=== PATIENT | female | born 1980 | race Caucasian/White ===

== ENCOUNTER 2017-10-09 05:16 | Inpatient (IN) | payer BC ==
[2017-10-09] MEDS ORDERED: Ondansetron HCl/PF 4 MG/2 ML Vial IVP PRN ×7 (05:24→16:19)
[2017-10-09] MEDS ORDERED: Promethazine HCl 25 MG/ML VIAL IM PRN ×3 (05:24→07:17)
[2017-10-09] MEDS ORDERED: Bicitra 30 ML UDCUP PO SCH (05:24)
[2017-10-09] MEDS ORDERED: CEFAZOLIN/Water 2 GM/20 ML SYRINGE SLOW IVP SCH (05:24)
[2017-10-09] MEDS ORDERED: Lactated Ringer's 1,000 ML IV SCH (05:24)
[2017-10-09 05:41] VITALS: BMI 34.4
[2017-10-09 06:03] LABS: Hemoglobin 11.3 g/dL (12.0-16.0); Mean Corpuscular HGB CONC 33.6 g/dL (32.0-36.0); Mean Corpuscular Hemoglobin 30.2 pg (27.0-31.0); Mean Corpuscular Volume 89.7 fl (81.0-99.0); Mean Platelet Volume 6.8 fL (7.4-10.4); Platelet Count 246 thou/uL (130-400); RBC Distribution Width 14.8 % (11.5-14.5); Red Blood Cell (RBC) Count 3.73 mill/uL (4.20-5.40); White Blood Cell (WBC) Count 7.8 thou/uL (4.8-10.8)
[2017-10-09 06:40] LABS: Hep B Surf Ag Non-Reactive S/CO (NonReactive)
[2017-10-09] MEDS ORDERED: Promethazine HCl 25 MG SUPP PR PRN ×3 (06:45→16:20)
[2017-10-09] MEDS ORDERED: Meperidine HCl/PF 25 MG/ML VIAL SLOW IVP PRN ×2 (06:45→07:17)
[2017-10-09] MEDS ORDERED: Ketorolac Tromethamine 30 MG/ML VIAL IVP PRN ×3 (06:45→15:30)
[2017-10-09] MEDS ORDERED: diphenhydrAMINE 50 MG/ML VIAL IVP PRN ×3 (06:45→16:22)
[2017-10-09] MEDS ORDERED: Naloxone HCl 0.4 mg/ml Vial IV PRN ×3 (06:45→16:18)
[2017-10-09] MEDS ORDERED: Ketorolac Tromethamine 30 MG/ML VIAL IVP SCH ×2 (06:45→07:30)
[2017-10-09] MEDS ORDERED: Eucerin (Mineral Oil/Petrolatum,White) 30 gm Jar TOP PRN ×3 (06:45→16:23)
[2017-10-09] MEDS ORDERED: Naloxone HCl 0.4 mg/ml Vial IVP PRN ×6 (06:45→16:24)
[2017-10-09] MEDS ORDERED: Communication Order-Pharmacy FS SCH ×2 (06:45→07:30)
[2017-10-09] MEDS ORDERED: HYDROmorphone 2 MG/ML VIAL SLOW IVP PRN ×2 (06:45→07:17)
[2017-10-09] MEDS ORDERED: Morphine PF 1 MG/ML SYR ONE (06:54)
[2017-10-09] MEDS ORDERED: Bupivacaine 0.75% W/DEXTROSE 8.25% 2 ML AMP ONE (06:55)
[2017-10-09] MEDS ORDERED: Dexamethasone 4 mg/ml Vial ONE (06:55)
[2017-10-09] MEDS ORDERED: Oxytocin 10 UNITS/ML VIAL ONE (06:55)
[2017-10-09] MEDS ORDERED: Lidocaine 1% PF 5 ML VIAL ONE (06:55)
[2017-10-09] MEDS ORDERED: PHENYLEPHRINE-NS 100 MCG/ML 10 ML SYRINGE ONE ×2 (07:03→11:14)
--- NOTE | 2017-10-09 07:37 | PDOC.LDHP ---
Labor and Delivery H&P Chief complaint: scheduled section HPI: Pt is a 36yo @ 39 weeks here for RCS (declines JOHANNE) and risk reduction salpingectomy. Current gestational age (weeks): 39 Due date: 10/14/17 Dating criteria: last menstrual period, first trimester ultrasound, other Grav: 2 Para: 1 OB History Details: CS for breech Current complications: none Abnormal US findings: No Past Medical History: asthma Current medications: pre-joe vitamins Previous surgical history: none Allergies/Adverse Reactions: Allergies Allergy/AdvReac Type Severity Reaction Status Date / Time No Known Allergies Allergy Verified 10/09/17 05:42 Social history: none - Physical Exam Vital signs reviewed and normal: yes General: resting Heart: RRR Abdomen: gravid Extremeties: trace edema FHT: category 1 - OB Labs Blood type: O RH: positive Antibody Screen: negative HIV: negative RPR: negative HEPSAg: negative 1 hour GCT: negative GBS: negative Urine drug screen: not done Rubella: immune - Assessment L&D Assessment: scheduled repeat section (and RRS) - Plan Plan: admit to L&D, informed consent obtained, anesthesia consult for pain management
--- NOTE | 2017-10-09 08:29 | PDOC.OPDEL ---
OB Operative/Delivery Note Delivery Dr/Surgeon: Alex Assist: Janel Pre-Delivery Diagnosis: scheduled section Procedure/Post Delivery Dx: repeat low transverse CS (and risk red salpingectomy ) Weeks gestation: 39 Anesthesia: spinal - Findings A Sex: female Weight: 8 lb 3 oz - 1 min: 9 - 5 min: 9 - Additional Findings/Plan Placenta delivered: manual removal findings: low transverse hysterotomy with extension, normal tubes Estimated blood loss: 700ml Post delivery plan: routine recovery
[2017-10-09] MEDS ORDERED: Meperidine HCl/PF 25 MG/ML VIAL ONE (10:23)
[2017-10-09] MEDS ORDERED: Ondansetron HCl/PF 4 MG/2 ML Vial ONE (11:14)
[2017-10-09] MEDS ORDERED: Dexamethasone 20 MG/5 ML VIAL ONE (11:14)
[2017-10-09] MEDS ORDERED: Ketorolac Tromethamine 30 MG/ML VIAL ONE (11:14)
--- NOTE | 2017-10-09 11:30 | OP ---
DATE OF PROCEDURE: 10/09/2017 PREOPERATIVE DIAGNOSES: 1. A 36-year-old -0-0-1 at 39 weeks. 2. Breech presentation. 3. Previous section. 4. Maternal family history of gynecologic cancer, desires risk reduction salpingectomy. POSTOPERATIVE DIAGNOSES: 1. Status post repeat low transverse section. 2. Maternal family history of gynecologic cancer, desires risk reduction salpingectomy. PROCEDURES PERFORMED: Repeat low transverse section with risk reduction salpingectomy. SURGEON: Tyrell Johnson D.O. TRIAGE CLINICIAN: Joellen Islas D.O. ANESTHESIA: Spinal per Dr. Walter. COMPLICATIONS: None. ESTIMATED BLOOD LOSS: 700 mL. FINDINGS: 1. Vigorous female infant delivered from anny breech presentation, Apgars 9 and 9, weight 8 pounds 3 ounces to nursery. 2. Low transverse hysterotomy without extension. 3. Normal appearing uterus, tubes and ovaries bilaterally. 4. Surgical sites hemostatic after and salpingectomy. 5. Normal appearing placenta. PROCEDURE DETAILS: The patient was taken back to the OR with IV fluids running. Once she was in the OR, spinal anesthesia was obtained. The patient was then placed in dorsal supine position with a le ft lateral tilt. Clifford catheter was placed using sterile technique and the abdomen was prepped and d raped in normal fashion for section. The abdomen was tested and anesthesia was found to be adequate. A Pfannenstiel skin incision was made with the scalpel. This skin incision was carried do wn through the subcutaneous tissue to the fascia. Once the fascia was reached, it was incised in the midline and extended superior laterally using curved scissors. Tony clamps were placed at the sup erior border of the fascia, which was sharply and bluntly dissected off the rectus abdominis muscles in both caudad and cephalad directions allowing adequate delivery space for the baby. The rectus mus cles were bluntly in the midline. The peritoneum was bluntly entered and stretched lateral ly. An Haile O retractor was placed into the peritoneal cavity for retraction, visualization and pr otection of the wound. A bladder flap was created and the bladder was dissected down away from the p lanned hysterotomy site. Hysterotomy was then made with the scalpel. The uterus was bluntly entered and stretched superior laterally using curved maneuver. Clear fluid was noted. The 's buttoc k was noted at the hysterotomy. With gentle fundal pressure, the was delivered without diffic ulty through the hysterotomy. The legs delivered spontaneously and the shoulders and head were deliv ered with gentle rotation. The nose and mouth were suctioned. The cord was doubly clamped and cut. The infant was handed off to special care nurses in attendance. Cord blood was collected. The plac enta was delivered. Uterus was exteriorized, massaged to firm, and cleared of clot and debris. The hysterotomy was then closed with Monocryl suture. Once hysterotomy was closed, attention was turned to the salpingectomy portion of the procedure. Beg inning on the patient's right side and the right fallopian tube was elevated with a Mick, small va scular areas were cauterized and tied off with plain gut free ties. After the salpingectomy was perf ormed on the right side completely transecting the right fallopian tube, attention was turned to the left side where the procedure was repeated on the left fallopian tube in similar fashion. After hem ostasis was noted of the salpingectomy surgical sites, the hysterotomy was inspected again and noted to be hemostatic. The uterus was returned to the abdominal cavity. The abdominal cavity and pericol ic gutters were copiously irrigated and suctioned dry. Hysterotomy and salpingectomy surgical sites were inspected again with no bleeding noted. The Haile O retractor was taken out of the peritoneal cavity. The muscle and rectus fascia were inspected with no areas of bleeding noted. The rectus fas pillo was then reapproximated with PDS suture from corner to corner. Subcutaneous layer was then irrig ated and dried with no areas of bleeding noted. Plain gut suture was used in an interrupted fashion to reapproximate the subcutaneous tissue. Subcuticular layer was reapproximated with 4-0 Monocryl an d dressed with Dermabond dressing. The patient's uterus was noted to be firm at end of the case. Sh e was clean, dry, and taken to the recovery room in good condition.
[2017-10-09] MEDS ORDERED: diphenhydrAMINE 25 MG CAP PO PRN (11:47)
[2017-10-09] MEDS ORDERED: NS / Oxytocin 40 units/1000ml 1,000 ML IV SCH (11:47)
[2017-10-09] MEDS ORDERED: Acetaminophen/Codeine 30-300mg Tablet PO PRN ×4 (11:47→22:12)
[2017-10-09] MEDS ORDERED: Lanolin Ointment 7 GM TUBE TOP PRN (11:47)
[2017-10-09] MEDS ORDERED: Meperidine HCl/PF 25 MG/ML VIAL IM PRN (11:47)
[2017-10-09] MEDS ORDERED: Bisacodyl 10 MG SUPP PR PRN (11:47)
[2017-10-09] MEDS ORDERED: Adacel (T-DAP) 0.5 ML VIAL IM ONE (11:47)
[2017-10-09] MEDS ORDERED: Simethicone Chewable 80 MG TAB PO PRN (11:47)
[2017-10-09] MEDS ORDERED: Ferrous Sulfate 325 MG TAB PO SCH (12:15)
[2017-10-09] MEDS ORDERED: Docusate Calcium (SURFAK) 240 MG CAP PO SCH (12:15)
[2017-10-09] MEDS ORDERED: Prenatal Vitamin 1 TAB PO SCH (12:15)
[2017-10-09] MEDS ORDERED: Ibuprofen 800 MG TAB PO SCH (14:00)
[2017-10-09] MEDS ORDERED: Promethazine HCl 25 MG/ML VIAL SLOW IVP PRN (16:20)
[2017-10-09] MEDS: Ferrous Sulfate 325 MG TAB PO SCH (16:29)
[2017-10-09] MEDS: Ibuprofen 800 MG TAB PO SCH (21:51)
[2017-10-09] MEDS: Docusate Calcium (SURFAK) 240 MG CAP PO SCH (21:51)
[2017-10-10] MEDS: Ibuprofen 800 MG TAB PO SCH ×3 (05:14→21:45)
[2017-10-10 05:31] LABS: Hemoglobin 10.7 g/dL (12.0-16.0); Mean Corpuscular HGB CONC 33.6 g/dL (32.0-36.0); Mean Corpuscular Hemoglobin 30.2 pg (27.0-31.0); Mean Corpuscular Volume 89.7 fl (81.0-99.0); Mean Platelet Volume 6.6 fL (7.4-10.4); Platelet Count 202 thou/uL (130-400); RBC Distribution Width 14.7 % (11.5-14.5); Red Blood Cell (RBC) Count 3.55 mill/uL (4.20-5.40); White Blood Cell (WBC) Count 10.3 thou/uL (4.8-10.8)
[2017-10-10] MEDS: Prenatal Vitamin 1 TAB PO SCH (08:24)
[2017-10-10] MEDS: Docusate Calcium (SURFAK) 240 MG CAP PO SCH ×2 (08:24→21:45)
[2017-10-10] MEDS: Ferrous Sulfate 325 MG TAB PO SCH ×2 (10:09→10:10)
--- NOTE | 2017-10-10 16:08 | PDOC.PP ---
Post Progress Note Post Day #: 1 Subjective: POD1 doing well, ready for DC but willing to stay overnight. PO intake tolerated: yes Flatus: yes Ambulation: yes Vital Signs (12 hours) Temp Pulse Resp BP 10/10/17 12:27 98.3 F 82 18 112/59 L 10/10/17 11:45 98.3 F 82 18 10/10/17 08:39 97.9 F 67 18 103/66 10/10/17 07:50 97.8 F 68 16 Weight Weight 240 lb - Physical Examination General: NAD Respiratory: non-labored breathing Abdominal: no distention Fundus firm & at: below umb Extremities: negative homans (B) Skin: CS incision dry & intact, no rash Neurological: no gross focal deficits Psychiatric: A&Ox3, normal affect Result Diagrams: 10/10/17 05:11 Additional Labs: Post Labs Blood Type O POSITIVE 10/09/17 05:56 Hep Bs Antigen Non-Reactive S/CO (NonReactive) 10/09/17 05:57 (1) delivery delivered Code(s): O82 - ENCOUNTER FOR DELIVERY WITHOUT INDICATION Status: Acute (2) 39 weeks gestation of Code(s): Z3A.39 - 39 WEEKS GESTATION OF Status: Acute (3) Breech presentation Code(s): O32.1XX0 - MATERNAL CARE FOR BREECH PRESENTATION, UNSP Status: Acute - Assessment/Plan POD 1 doing well, plan for DC tomorrow, bottle feeding.
[2017-10-11] MEDS: Ibuprofen 800 MG TAB PO SCH (06:25)
--- NOTE | 2017-10-11 08:04 | PDOC.PP ---
Post Progress Note Post Day #: 2 Subjective: doing well desires DC home PO intake tolerated: yes Flatus: yes Ambulation: yes Vital Signs (12 hours) Temp Pulse Resp BP 10/11/17 00:00 98.3 F 69 16 103/59 L Weight Weight 240 lb - Physical Examination Respiratory: non-labored breathing Abdominal: no distention Skin: CS incision dry & intact, no rash Psychiatric: A&Ox3, normal affect Result Diagrams: 10/10/17 05:11 Additional Labs: Post Labs Blood Type O POSITIVE 10/09/17 05:56 Hep Bs Antigen Non-Reactive S/CO (NonReactive) 10/09/17 05:57 (1) delivery delivered Code(s): O82 - ENCOUNTER FOR DELIVERY WITHOUT INDICATION Status: Acute (2) 39 weeks gestation of Code(s): Z3A.39 - 39 WEEKS GESTATION OF Status: Acute (3) Breech presentation Code(s): O32.1XX0 - MATERNAL CARE FOR BREECH PRESENTATION, UNSP Status: Acute - Assessment/Plan POD2 desires DC home.
[2017-10-11] MEDS: Ferrous Sulfate 325 MG TAB PO SCH (08:25)
[2017-10-11 08:42] VITALS: BP 115/67; TEMP 98
[2017-10-11] MEDS: Prenatal Vitamin 1 TAB PO SCH (09:09)
[2017-10-11] MEDS: Docusate Calcium (SURFAK) 240 MG CAP PO SCH (09:10)
== END 2017-10-11 10:40 | disposition home or self-care (01) | DRG 766 ==
LOC: L&D 05:16 → 3SW 11:49
PROVIDERS: ADMIT Obstetrics & Gynecology; ATTEND Obstetrics & Gynecology
PROC: 10D00Z1 Extraction of Products of Conception, Low, Open Approach (ICD-10-PCS; principal; 2017-10-09)
PROC: 0UT70ZZ Resection of Bilateral Fallopian Tubes, Open Approach (ICD-10-PCS; 2017-10-09)
DX: O34.211 Maternal care for low transverse scar from previous cesarean delivery (principal); Z37.0 Single live birth; Z3A.39 39 weeks gestation of pregnancy; O32.1XX0 Maternal care for breech presentation, not applicable or unspecified; Z80.41 Family history of malignant neoplasm of ovary; Z15.02 Genetic susceptibility to malignant neoplasm of ovary; Z40.02 Encounter for prophylactic removal of ovary(s)
CPT/HCPCS: 36415; 51702; 85027; 86850; 86900; 86901; 87340; 88305; J1100; J1885; J2001; J2175; J2274; J2405; J2590; J3490

== ENCOUNTER 2019-06-28 11:03 | Outpatient (CLI) | payer BC ==
--- NOTE | 2019-06-28 11:43 | CT ---
Exam: Head CT without contrast HISTORY: Syncope COMPARISON: none FINDINGS: Hemorrhage: No intraparenchymal hemorrhage or extra-axial hematoma. Brain parenchyma: Cortical valentine-white matter differentiation is preserved. No mass effect or midline shift. Basilar cisterns are patent. Ventricular system: Ventricles and sulci are patent and symmetric. Calvarium: Intact. Sinuses and mastoid air cells: Adequate aeration. IMPRESSION: No acute intracranial process.
== END 2019-06-28 11:04 | disposition home or self-care (01) ==
LOC: BICCT 11:03
PROVIDERS: ATTEND Family Medicine
DX: R55 Syncope and collapse (principal)
CPT/HCPCS: 70450